=== PATIENT | female | born 2000 ===

== ENCOUNTER 2022-05-08 02:13 | Emergency (ER) | payer MEDICAID ==
[2022-05-08 04:32] VITALS: BP 111/86
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
--- NOTE | 2022-05-08 05:09 | XRay Report ---
XR nasal bone 3+V INDICATION / CLINICAL INFORMATION: nose injury, mild bleeding COMPARISON: None available. FINDINGS/IMPRESSION: No acute nasal bone fracture. Paranasal sinuses are clear as visualized. Signer Name: David Rubin MD Signed: 05/08/2022 5:04 AM Workstation Name: [id number]
== END 2022-05-08 06:06 | disposition home or self-care (01) ==
LOC: ED 02:13
DX: S00.33XA Contusion of nose, initial encounter (principal); R04.0 Epistaxis; X58.XXXA Exposure to other specified factors, initial encounter; Y93.89 Activity, other specified; Y92.89 Other specified places as the place of occurrence of the external cause; Y99.8 Other external cause status
CPT/HCPCS: 70160; 99283